=== PATIENT | female | born 1950 | race Caucasian/White ===

== ENCOUNTER → 2017-02-07 | Outpatient (CLI) | payer OTHER, MEDICARE ==
--- NOTE | 2017-02-07 15:41 | DIAGNOSTIC IMAGING REPORT ---
BONE SCAN WHOLE BODY HISTORY: 66 years-old Female CHRONIC PAIN OF LEFT KNEE chronic left knee pain. History of prior breast cancer. Prior imaging conducted at outside hospitals. COMPARISON: None available TECHNIQUE: Anterior and posterior whole-body planar scintigraphic images from a bone scan were obtained utilizing 25.2 mCi technetium 99 MDP. FINDINGS: There is moderate radiotracer uptake about the right sternoclavicular joint and also within the region of the dorsal mid feet bilaterally suggesting degenerative changes. Areas of mild to moderate tracer uptake noted about the left knee medial and patellofemoral compartments. Mild uptake about the bilateral shoulders and spine is likely degenerative. There is physiologic radiotracer uptake within the kidneys, soft tissues and urinary bladder. Moderate focus of radiotracer uptake below the urinary bladder projecting over the soft tissues suggest urinary contamination. No suspicious axial or appendicular foci to suggest metastasis. IMPRESSION: 1. No focal axial or appendicular skeletal uptake identified to suggest metastasis. 2. Indeterminate moderate focal area of radiotracer uptake within the region of the right sternoclavicular joint is likely degenerative however could be correlated with dedicated radiographs. 3. Mild to moderate uptake about the left knee medial and patellofemoral compartments is also likely degenerative in nature, however could be confirmed with prior imaging and left knee radiographs. The above report was generated using voice recognition software. It may contain grammatical, syntax or spelling errors. Electronically signed by: Modesto Deluca M.D. 02/07/2017 3:39 PM Dictated Date/Time: 02/07/2017 3:29 PM
== END | disposition home or self-care (01) ==
LOC: C.NUCL 11:06
PROVIDERS: ATTEND Orthopaedic Surgery
DX: M25.562 Pain in left knee (principal); R93.7 Abnormal findings on diagnostic imaging of other parts of musculoskeletal system